=== PATIENT | male | born 1960 | race African-American/Black ===

== ENCOUNTER 2018-10-14 12:11 | Inpatient (IN) | payer OTHER ==
[2018-10-14] MEDS ORDERED: ASPIRIN 81 MG PO STA (12:28)
[2018-10-14] MEDS ORDERED: SODIUM CHLORIDE 0.9% 1,000 ML IV STA ×2 (12:28)
--- NOTE | 2018-10-14 12:35 | ED ---
Chest Pain HPI - General Chief Complaint: Chest Pain Stated Complaint: Chest pain Time Seen by Provider: 10/14/18 12:14 Source: patient, RN notes reviewed, old records reviewed Mode of arrival: EMS Limitations: no limitations - History of Present Illness Initial Comments: Patient is a 57-year-old male who presents emergency department today for evaluation for chest pain and dizziness. Patient reports that he was at work, and was breathing somewhat up. He started having episodes of dizziness and complained of a 3 out of 10 chest pain. Patient reports he's had history two- vessel coronary artery bypass over 10 years ago. 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 Patient states that he felt as if he was about to pass out when he had the episode of chest pain. EMS was called. He was given 2 nitro and reports that that assisted with his chest pain. Patient states that he has no nausea or vomiting or shortness of shortness of breath. He does report he has been having some intermittent coughing. - Related Data Home Medications Medication Instructions Recorded Confirmed Aspirin 81 mg PO DAILY 12/07/15 10/14/18 Clopidogrel [Plavix] 75 mg PO DAILY 12/07/15 10/14/18 Metoprolol Tartrate [Lopressor] 25 mg PO BID 12/07/15 10/14/18 Lisinopril [Zestril] 10 mg PO DAILY 10/14/18 10/14/18 Sertraline HCl [Zoloft] 25 mg PO DAILY 10/14/18 10/14/18 Simvastatin [Zocor] 40 mg PO HS 10/14/18 10/14/18 Allergies Allergy/AdvReac Type Severity Reaction Status Date / Time No Known Allergies Allergy Verified 10/14/18 12:33 Review of Systems ROS Statement: Those systems with pertinent positive or pertinent negative responses have been documented in the HPI. ROS Other: All systems not noted in ROS Statement are negative. EKG Findings - EKG Comments: EKG Findings:: EKG shows sinus bradycardia, inferior infarct age indeterminate possible anterior infarct age undetermined. Ventricular rate at 57 beats were minute period. Intervals 184 ms. QS ration 94 ms. QT QTc is 448/436 most seconds. No notes of ST elevation. Past Medical History Past Medical History: Chest Pain / Angina, Myocardial Infarction ([place]) History of Any Multi-Drug Resistant Organisms: None Reported Past Surgical History: Heart Catheterization With Stent Additional Past Surgical History / Comment(s): open heart Past Psychological History: Anxiety, Depression Smoking Status: Former smoker General Exam - General Exam Comments Initial Comments: 57-year-old -Citizen Of [place] male. Alert and oriented 3. Limitations: no limitations General appearance: alert, in no apparent distress Head exam: Present: atraumatic, normocephalic, normal inspection Eye exam: Present: normal appearance, PERRL, EOMI. Absent: scleral icterus, conjunctival injection, periorbital swelling ENT exam: Present: normal exam, mucous membranes moist Neck exam: Present: normal inspection. Absent: tenderness, meningismus, lymphadenopathy Respiratory exam: Present: normal lung sounds bilaterally. Absent: respiratory distress, wheezes, rales, rhonchi, stridor Cardiovascular Exam: Present: regular rate, normal rhythm, normal heart sounds. Absent: systolic murmur, diastolic murmur, rubs, gallop, clicks GI/Abdominal exam: Present: soft, normal bowel sounds. Absent: distended, tenderness, guarding, rebound, rigid Extremities exam: Present: normal inspection, full ROM, normal capillary refill. Absent: tenderness, pedal edema, joint swelling, calf tenderness Back exam: Present: normal inspection Neurological exam: Present: alert Psychiatric exam: Present: normal affect, normal mood Skin exam: Present: warm, dry, intact, normal color. Absent: rash Course Vital Signs 10/14/18 10/14/18 12:25 12:30 Temperature 98.4 F Pulse Rate 49 L 52 L Respiratory 16 18 Rate Blood Pressure 143/88 143/88 O2 Sat by Pulse 99 99 Oximetry Chest Pain [facility] 57-year-old male presents emergency department today with complaints of chest pain, and dizziness. Patient reports symptoms started while he was standing at work. Patient has history of coronary artery bypass. Patient has EKG with no significant change. Initial troponin is negative. He arrived via EMS and did feel improvement of his chest pain after 2 nitro and aspirin. 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 Dizziness, no associated chest pain with history of coronary artery disease. The Patient with consult to cardiology. Chest x-ray shows evidence of cardiomegaly. Increased from c omparison. Disposition Clinical Impression: Unstable angina, Light-headed feeling Disposition: ADMITTED IP TO THIS HOSP Condition: Stable Is patient prescribed a controlled substance at d/c from ED?: No Referrals: Sunilkumar,Mini, MD [Primary Care Provider] - 1-2 days Time of Disposition: 13:52
[2018-10-14 12:57] LABS: Basophils # (A) 0.1 k/uL (0-0.2); Basophils % (A) 1 %; Eosinophils # (A) 0.2 k/uL (0-0.7); Eosinophils % (A) 2 %; HCT 44.8 % (39.0-53.0); HGB 13.8 gm/dL (13.0-17.5); Lymphocytes # (A) 1.6 k/uL (1.0-4.8); Lymphocytes % (A) 21 %; MCH 25.3 pg (25.0-35.0); MCHC 30.7 g/dL (31.0-37.0); MCV 82.3 fL (80.0-100.0); Monocytes # (A) 0.5 k/uL (0-1.0); Monocytes % (A) 7 %; Neutrophils # (A) 5.1 k/uL (1.3-7.7); Neutrophils % (A) 67 %; Platelet Count 184 k/uL (150-450); RBC 5.44 m/uL (4.30-5.90); RDW 14.7 % (11.5-15.5); WBC 7.6 k/uL (3.8-10.6)
[2018-10-14 13:11] LABS: ALT 31 U/L (21-72); AST 44 U/L (17-59); Albumin 4.3 g/dL (3.5-5.0); Alkaline Phosphatase 58 U/L (38-126); Anion Gap 7 mmol/L; Blood Urea Nitrogen 11 mg/dL (9-20); Calcium 9.8 mg/dL (8.4-10.2); Carbon Dioxide 25 mmol/L (22-30); Chloride 105 mmol/L (98-107); Glucose 82 mg/dL (74-99); Magnesium 1.8 mg/dL (1.6-2.3); Potassium 5.4 mmol/L (3.5-5.1); Sodium 137 mmol/L (137-145); Total Bilirubin 1.5 mg/dL (0.2-1.3); Total Protein 7.7 g/dL (6.3-8.2)
--- NOTE | 2018-10-14 13:16 | XR ---
EXAMINATION TYPE: XR chest 2V DATE OF EXAM: 10/14/2018 COMPARISON: 12/08/2015 INDICATION: Chest pain TECHNIQUE: Frontal and lateral views of the chest are obtained. FINDINGS: The heart size is prominent, increased from comparison. The pulmonary vasculature is normal. The lungs are clear. IMPRESSION: 1. Cardiomegaly
[2018-10-14 13:18] LABS: Partial Thromboplastin Time 26.5 sec (22.0-30.0); Prothrombin Time 10.6 sec (9.0-12.0)
[2018-10-14] MEDS ORDERED: NITROGLYCERIN SL TABS 0.4 MG TAB SUBLINGUAL PRN (13:53)
--- NOTE | 2018-10-14 14:44 | P.HPIM ---
History of Present Illness This is a pleasant 57 years old male with past medical history of coronary artery disease status post cardiac cath and stent placement, ex-smoker, anxiety and depression. Presents this time because of chest/discomfort. Patient says that he has TIA last June when he had dizziness and weakness on the right side of the body missile generalized weakness which is resolved. Last night and this morning he felt some dizziness and generalized weakness without right-sided weakness, similar to the time when he had TIA. However this morning also he starts having indigestion in his stomach area associated with some discomfort in his left chest area, nonradiating with no overt chest pain. He felt also a little bit of dyspnea, little cuff with little clear phlegm Vitas looks stable, CBC, BMP and liver enzymes are within normal limits except for mildly elevated potassium at 5.4. Bilirubin 1.5. Troponin less than 0.012. EKG showing normal sinus rhythm with no significant ST-T changes, he has to with inversion in aVL. QTC 436. Chest x-ray: No acute cardiopulmonary process. Neurologist. Cardiomegaly. In the emergency room patient received aspirin, IV fluids Review of Systems CONSTITUTIONAL: No fever, no malaise, no fatigue. HEENT: No recent visual problems or hearing problems. Denied any sore throat. CARDIOVASCULAR: No orthopnea, PND, no palpitations, no syncope. PULMONARY: No shortness of breath, no cough, no hemoptysis. GASTROINTESTINAL: No diarrhea, no nausea, no vomiting, no abdominal pain. Normoactive bowel sounds. NEUROLOGICAL: No headaches, no weakness, no numbness. HEMATOLOGICAL: Denies any bleeding or petechiae. GENITOURINARY: Denies any burning micturition, frequency, or urgency. MUSCULOSKELETAL/RHEUMATOLOGICAL: Denies any joint pain, swelling, or any muscle pain. ENDOCRINE: Denies any polyuria or polydipsia. Past Medical History Past Medical History: Chest Pain / Angina, Myocardial Infarction ([place]) History of Any Multi-Drug Resistant Organisms: None Reported Past Surgical History: Heart Catheterization With Stent Additional Past Surgical History / Comment(s): open heart Past Psychological History: Anxiety, Depression Smoking Status: Former smoker Medications and Allergies Home Medications Medication Instructions Recorded Confirmed Type Aspirin 81 mg PO DAILY 12/07/15 10/14/18 History Clopidogrel [Plavix] 75 mg PO DAILY 12/07/15 10/14/18 History Metoprolol Tartrate [Lopressor] 25 mg PO BID 12/07/15 10/14/18 History Lisinopril [Zestril] 10 mg PO DAILY 10/14/18 10/14/18 History Sertraline HCl [Zoloft] 25 mg PO DAILY 10/14/18 10/14/18 History Simvastatin [Zocor] 40 mg PO HS 10/14/18 10/14/18 History Allergies Allergy/AdvReac Type Severity Reaction Status Date / Time No Known Allergies Allergy Verified 10/14/18 12:33 Physical Exam Vitals: Vital Signs Temp Pulse Resp BP Pulse Ox 10/14/18 14:05 68 16 156/93 100 10/14/18 12:30 52 L 18 143/88 99 10/14/18 12:25 98.4 F 49 L 16 143/88 99 Intake and Output 10/13/18 10/14/18 10/14/18 22:59 06:59 14:59 Other: Weight 113.398 kg GENERAL: The patient is alert and oriented x3, not in any acute distress. Well developed, well nourished. HEENT: Pupils are round and equally reacting to light. EOMI. No scleral icterus. No conjunctival pallor. Normocephalic, atraumatic. No pharyngeal erythema. No thyromegaly. CARDIOVASCULAR: S1 and S2 present. No murmurs, rubs, or gallops. PULMONARY: Chest is clear to auscultation, no wheezing or crackles. ABDOMEN: Soft, nontender, nondistended, normoactive bowel sounds. No palpable organomegaly. MUSCULOSKELETAL: No joint swelling or deformity. EXTREMITIES: No cyanosis, clubbing, or pedal edema. NEUROLOGICAL: Gross neurological examination did not reveal any focal deficits. SKIN: No rashes. Results CBC & Chem 7: 10/14/18 12:26 10/14/18 12:26 Labs: Abnormal Lab Results - Last 24 Hours (Table) 10/14/18 10/14/18 Range/Units 12: 12: MCHC 30.7 L (31.0-37.0) g/dL Potassium 5.4 H (3.5-5.1) mmol/L Total Bilirubin 1.5 H (0.2-1.3) mg/dL Assessment and Plan Assessment: Chest pain, rule out acute coronary syndrome History of coronary artery disease status post a stent placement Ex-smoker History of anxiety and depression Plan: This is a pleasant 57 years old male who presents because of chest discomfort .Will call cardiology consult. We will troponins and EKG. Continue with aspirin, Plavix. The last 4 TSH evaluation. Also we'll do a CAT scan of the heads Labs and medication were reviewed.. Continue same treatment. Continue with symptomatic treatment. Resume home medication. Monitor lytes and vitals. DVT and GI prophylaxis. Further recommendations of the clinical course of the patient DVT prophylaxis: Subcutaneous heparin GI Prophylaxis: Pepcid Prognosis is guarded
[2018-10-14] MEDS: FAMOTIDINE 20 MG/2 ML VIAL IV SCH ×2 (15:43→21:21)
--- NOTE | 2018-10-14 16:19 | CT ---
EXAMINATION TYPE: CT brain wo con DATE OF EXAM: 10/14/2018 COMPARISON: Dizziness INDICATION: chest pain, dizziness DLP: 1117.4 mGycm, Automated exposure control for dose reduction was used. CONTRAST: None CT of the brain is performed utilizing 3 mm thick sections through the posterior fossa and 3 mm thick sections through the remaining calvarium. Study is performed within 24 hours of arrival to the hosp ital. No abnormal hyperdensity is present to suggest an acute intracranial hemorrhage. No mass lesion is evident. No acute infarcts are evident. Periventricular white matter hypodensity is present, likely on the bas is of mild chronic white matter ischemic type changes. Ventricles and sulci are appropriate for the patient age. Retention cysts within the right maxillary sinus. Remaining paranasal sinuses and mastoid air cells a re clear. IMPRESSIONS: 1. Mild chronic appearing white matter ischemic type changes.
[2018-10-14 17:15] VITALS: BMI 33.0
[2018-10-14] MEDS: HEPARIN SODIUM,PORCINE 5,000 UNIT/ML 1 ML VIAL SQ SCH (21:12)
[2018-10-14] MEDS: METOPROLOL TARTRATE 25 MG TAB PO SCH (21:13)
[2018-10-14] MEDS: ATORVASTATIN 20 MG TAB PO SCH (21:13)
[2018-10-15 07:02] LABS: Basophils % (A) 1 %; Eosinophils # (A) 0.3 k/uL (0-0.7); Eosinophils % (A) 4 %; HCT 42.6 % (39.0-53.0); HGB 13.4 gm/dL (13.0-17.5); Lymphocytes # (A) 1.3 k/uL (1.0-4.8); Lymphocytes % (A) 22 %; MCHC 31.4 g/dL (31.0-37.0); MCV 82.8 fL (80.0-100.0); Monocytes # (A) 0.4 k/uL (0-1.0); Monocytes % (A) 7 %; Neutrophils # (A) 3.8 k/uL (1.3-7.7); Neutrophils % (A) 63 %; Platelet Count 156 k/uL (150-450); RBC 5.15 m/uL (4.30-5.90); RDW 14.7 % (11.5-15.5); WBC 6.1 k/uL (3.8-10.6)
[2018-10-15 07:10] LABS: Anion Gap 7 mmol/L; Blood Urea Nitrogen 12 mg/dL (9-20); Calcium 9.5 mg/dL (8.4-10.2); Carbon Dioxide 24 mmol/L (22-30); Chloride 107 mmol/L (98-107); Cholesterol 201 mg/dL (<200); Glucose 80 mg/dL (74-99); HDL Cholesterol 35 mg/dL (40-60); LDL Cholesterol,Calculated 139 mg/dL (0-99); Potassium 4.5 mmol/L (3.5-5.1); Sodium 138 mmol/L (137-145); Triglycerides 137 mg/dL (<150)
[2018-10-15] MEDS: FAMOTIDINE 20 MG/2 ML VIAL IV SCH ×2 (08:29→20:11)
[2018-10-15] MEDS: LISINOPRIL 10 MG TAB PO SCH (08:29)
[2018-10-15] MEDS: CLOPIDOGREL 75 MG TAB PO SCH (08:29)
[2018-10-15] MEDS: HEPARIN SODIUM,PORCINE 5,000 UNIT/ML 1 ML VIAL SQ SCH ×2 (08:29→20:11)
[2018-10-15] MEDS: ASPIRIN 325 MG TAB PO SCH (08:29)
[2018-10-15] MEDS ORDERED: SERTRALINE 25 MG TAB PO SCH (09:00)
[2018-10-15] MEDS ORDERED: REGADENOSON 0.4 MG/5 ML SYRINGE IV ONE (09:59)
[2018-10-15] MEDS: METOPROLOL TARTRATE 25 MG TAB PO SCH (10:05)
--- NOTE | 2018-10-15 14:36 | P.CRDCN ---
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 Beside that he does have hypertension as well as dyslipidemia. He was in his usual state of health until yesterday when he was at work and started experiencing discomfort in the mid of the chest, as a pressure on the chest, without any radiation to the arm or neck or shoulders, and without any associated symptoms of shortness of breath, sweating, nausea, heart racing, or syncope. Because of that he decided to come to the emergency room. The EKG showed sinus rhythm without any ischemic ST or T-wave abnormalities. The cardiac enzymes were checked and came in to be unremarkable. The chest x-ray did not show any acute abnormalities. The patient felt dizzy before he started experiencing the chest discomfort and that dizziness and reminded him with what he had earlier this year when he was diagnosed was TIA. On physical examination, he is chest pain-free. He does have significant systolic murmur at the right and left upper sternal border. At this point I am going to obtain an echocardiogram was Doppler. Beside that I did recommend obtaining stress test to rule out severe coronary artery disease. Meanwhile will continue the current medical regimen. Past Medical History Past Medical History: Chest Pain / Angina, Myocardial Infarction ([place]) Last Myocardial Infarction Date:: 2001 History of Any Multi-Drug Resistant Organisms: None Reported Past Surgical History: Heart Catheterization With Stent Additional Past Surgical History / Comment(s): open heart, knee surgery Date of Last Stent Placement:: 2001 Past Psychological History: Anxiety, Depression Smoking Status: Never smoker Medications and Allergies Home Medications Medication Instructions Recorded Confirmed Type Aspirin 81 mg PO DAILY 12/07/15 10/14/18 History Clopidogrel [Plavix] 75 mg PO DAILY 12/07/15 10/14/18 History Metoprolol Tartrate [Lopressor] 25 mg PO BID 12/07/15 10/14/18 History Lisinopril [Zestril] 10 mg PO DAILY 10/14/18 10/14/18 History Sertraline HCl [Zoloft] 25 mg PO DAILY 10/14/18 10/14/18 History Simvastatin [Zocor] 40 mg PO HS 10/14/18 10/14/18 History Allergies Allergy/AdvReac Type Severity Reaction Status Date / Time No Known Allergies Allergy Verified 10/14/18 12:33 Physical Exam Vitals: Vital Signs Temp Pulse Pulse Resp BP BP Pulse Ox 10/15/18 08:00 98.0 F 57 L 18 148/82 96 10/15/18 04:00 98.1 F 78 16 139/72 98 10/15/18 00:00 97.9 F 60 16 116/68 98 10/14/18 20:00 98 F 70 16 127/70 96 10/14/18 16:35 64 18 154/82 100 10/14/18 15:45 59 L 16 142/86 100 10/14/18 14:05 68 16 156/93 100 10/14/18 12:30 52 L 18 143/88 99 10/14/18 12:25 98.4 F 49 L 16 143/88 99 Intake and Output 10/14/18 10/15/18 10/15/18 22:59 06:59 14:59 Intake Total 500 0 Balance 500 0 Intake: Intake, IV Titration 500 Amount Sodium Chloride 0.9% 1, 500 000 ml @ 100 mls/hr IV . Q10H STA Rx#:[id number] Oral 0 Other: # Voids 1 1 Weight 118.2 kg - Constitutional General appearance: no acute distress - Respiratory Respiratory: bilateral: CTA - Cardiovascular Rhythm: regular Heart sounds: normal: S1, S2 Abnormal Heart Sounds: systolic murmur Results 10/15/18 06:02 10/15/18 06:02 Cardiac Enzymes 10/14/18 10/14/18 10/14/18 Range/Units 12:26 12:26 18:00 AST 44 (17-59) U/L Troponin I <0.012 <0.012 (0.000-0.034) ng/mL 10/15/18 Range/Units 00:36 AST (17-59) U/L Troponin I <0.012 (0.000-0.034) ng/mL Coagulation 10/14/18 Range/Units 12:26 PT 10.6 (9.0-12.0) sec APTT 26.5 (22.0-30.0) sec Lipids 10/15/18 Range/Units 06:02 Triglycerides 137 (<150) mg/dL Cholesterol 201 H (<200) mg/dL HDL Cholesterol 35 L (40-60) mg/dL CBC 10/14/18 10/15/18 Range/Units 12: 06:02 WBC 7.6 6.1 (3.8-10.6) k/uL RBC 5.44 5.15 (4.30-5.90) m/uL Hgb 13.8 13.4 (13.0-17.5) gm/dL Hct 44.8 42.6 (39.0-53.0) % Plt Count 184 156 (150-450) k/uL Comprehensive Metabolic Panel 10/14/18 10/15/18 Range/Units 12: 06:02 Sodium 137 138 (137-145) mmol/L Potassium 5.4 H 4.5 (3.5-5.1) mmol/L Chloride 105 107 (98-107) mmol/L Carbon Dioxide 25 24 (22-30) mmol/L BUN 11 12 (9-20) mg/dL Creatinine 0.95 1.03 (0.66-1.25) mg/dL Glucose 82 80 (74-99) mg/dL Calcium 9.8 9.5 (8.4-10.2) mg/dL AST 44 (17-59) U/L ALT 31 (21-72) U/L Alkaline Phosphatase 58 (38-126) U/L Total Protein 7.7 (6.3-8.2) g/dL Albumin 4.3 (3.5-5.0) g/dL Current Medications Generic Name Dose Route Start Last Admin Trade Name Freq PRN Reason Stop Dose Admin Aspirin 325 mg 10/15/18 09:00 10/15/18 08:29 Aspirin PO 325 mg DAILY DARCI Administration Atorvastatin Calcium 20 mg 10/14/18 21:00 10/14/18 21:13 Lipitor PO 20 mg HS DARCI Administration Clopidogrel Bisulfate 75 mg 10/15/18 09:00 10/15/18 08:29 Plavix PO 75 mg DAILY DARCI Administration Famotidine 20 mg 10/14/18 14:45 10/15/18 08:29 Pepcid IV 20 mg Q12HR DARCI Administration Heparin Sodium (Porcine) 5,000 unit 10/14/18 21:00 10/15/18 08:29 Heparin SQ 5,000 unit Q12HR DARCI Administration Lisinopril 10 mg 10/15/18 09:00 10/15/18 08:29 Zestril PO 10 mg DAILY DARCI Administration Metoprolol Tartrate 25 mg 10/14/18 21:00 10/14/18 21:13 Lopressor PO 25 mg BID DARCI Administration Nitroglycerin 0.4 mg 10/14/18 13:53 Nitrostat SUBLINGUAL Q5M PRN Chest Pain Sertraline HCl 25 mg 10/15/18 09:00 10/15/18 08:29 Zoloft PO 25 mg DAILY DARCI Administration Intake and Output 10/14/18 10/15/18 10/15/18 22:59 06:59 14:59 Intake Total 500 0 Balance 500 0 Intake: Intake, IV Titration 500 Amount Sodium Chloride 0.9% 1, 500 000 ml @ 100 mls/hr IV . Q10H STA Rx#:[id number] Oral 0 Other: # Voids 1 1 Weight 118.2 kg 10/15/18 06:02 10/15/18 06:02 Assessment and Plan Assessment: Assessment #1 atypical chest discomfort #2 coronary artery disease #3 hypertension #4 dyslipidemia #5 history of TIA Plan #1 the patient was ruled out for acute coronary event #2 I recommended obtaining stress test to rule out severe CAD #3 I did recommend also getting an echocardiogram was Doppler #4 follow-up with the patient Thank you for allowing us participate in his care
--- NOTE | 2018-10-15 14:39 | P.PN ---
Subjective This is a pleasant 57 years old male with past medical history of coronary artery disease status post cardiac cath and stent placement, ex-smoker, anxiety and depression. Presents this time because of chest/discomfort. Patient says that he has TIA last June when he had dizziness and weakness on the right side of the body missile generalized weakness which is resolved. Last night and this morning he felt some dizziness and generalized weakness without right-sided weakness, similar to the time when he had TIA. However this morning also he starts having indigestion in his stomach area associated with some discomfort in his left chest area, nonradiating with no overt chest pain. He felt also a little bit of dyspnea, little cuff with little clear phlegm Vitas looks stable, CBC, BMP and liver enzymes are within normal limits except for mildly elevated potassium at 5.4. Bilirubin 1.5. Troponin less than 0.012. EKG showing normal sinus rhythm with no significant ST-T changes, he has to with inversion in aVL. QTC 436. Chest x-ray: No acute cardiopulmonary process. Neurologist. Cardiomegaly. In the emergency room patient received aspirin, IV fluids 10/15/2018 Patient feels better regarding his chest pain and dizziness. His chest pain is improved but still have some discomfort. He still have, dry. However he still feels generally weak. Hemodynamically stable. Labs were unremarkable. Cholesterol is mildly elevated. He has negative CAT scan of the brain for acute process. And TSH is within normal limits at 1.6. Patient has been evaluated by cardiology team. Patient is going for stress test tomorrow. 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 HEENT: No recent visual problems or hearing problems. Denied any sore throat. CARDIOVASCULAR: No orthopnea, PND, no palpitations, no syncope. PULMONARY: , no hemoptysis. GASTROINTESTINAL: No diarrhea, no nausea, no vomiting, no abdominal pain. Normoactive bowel sounds. NEUROLOGICAL: No headaches, no weakness, no numbness. HEMATOLOGICAL: Denies any bleeding or petechiae. GENITOURINARY: Denies any burning micturition, frequency, or urgency. MUSCULOSKELETAL/RHEUMATOLOGICAL: Denies any joint pain, swelling, or any muscle pain. ENDOCRINE: Denies any polyuria or polydipsia. Medications: A minor filling 100 mg, aspirin 325 mg, Lipitor 20 mg, Plavix 75 mg, dipyridamole 49.98 mm, Pepcid 20 mg, heparin 5000 units, lisinopril 10 mg, metoprolol 25 mg, nitroglycerin 0.4 mg, Zoloft 25 mg Objective - Vital Signs Vital signs: Vital Signs Temp 97.8 F 10/15/18 11:19 Pulse 62 10/15/18 11:19 Resp 18 10/15/18 11:19 BP 152/77 10/15/18 11:19 Pulse Ox 97 10/15/18 11:19 Intake & Output 10/14/18 10/15/18 10/15/18 18:59 06:59 18:59 Intake Total 500 0 Balance 500 0 Weight 113.398 kg 118.2 kg Intake: Intake, IV Titration 500 Amount Sodium Chloride 0.9% 1, 500 000 ml @ 100 mls/hr IV . Q10H STA Rx#:[id number] Oral 0 Other: # Voids 1 - Exam GENERAL: The patient is alert and oriented x3, not in any acute distress. Well developed, well nourished. HEENT: Pupils are round and equally reacting to light. EOMI. No scleral icterus. No conjunctival pallor. Normocephalic, atraumatic. No pharyngeal erythema. No thyromegaly. CARDIOVASCULAR: S1 and S2 present. No murmurs, rubs, or gallops. PULMONARY: Chest is clear to auscultation, no wheezing or crackles. ABDOMEN: Soft, nontender, nondistended, normoactive bowel sounds. No palpable organomegaly. MUSCULOSKELETAL: No joint swelling or deformity. EXTREMITIES: No cyanosis, clubbing, or pedal edema. NEUROLOGICAL: Gross neurological examination did not reveal any focal deficits. SKIN: No rashes. - Labs CBC & Chem 7: 10/15/18 06:02 10/15/18 06:02 Labs: Abnormal Lab Results - Last 24 Hours (Table) 10/15/18 Range/Units 06:02 Cholesterol 201 H (<200) mg/dL LDL Cholesterol, Calc 139 H (0-99) mg/dL HDL Cholesterol 35 L (40-60) mg/dL Assessment and Plan Assessment: Chest pain, rule out acute coronary syndrome History of coronary artery disease status post a stent placement Ex-smoker History of anxiety and depression Plan: This is a pleasant 57 years old male who presents because of chest discomfort .Will call cardiology consult. We will troponins and EKG. Continue with aspirin, Plavix. The last 4 TSH evaluation. Also we'll do a CAT scan of the heads Labs and medication were reviewed.. Continue same treatment. Continue with symptomatic treatment. Resume home medication. Monitor lytes and vitals. DVT and GI prophylaxis. Further recommendations of the clinical course of the patient DVT prophylaxis: Subcutaneous heparin GI Prophylaxis: Pepcid Prognosis is guarded
--- NOTE | 2018-10-15 14:45 | ECHOF ---
Referral Reason: MEASUREMENTS -------- HEIGHT: 185.4 cm WEIGHT: 117.9 kg BP: 152/77 RVIDd: 3.4 cm (< 3.3) IVSd: 1.5 cm (0.6 - 1.1) LVIDd: 5.1 cm (3.9 - 5.3) LVPWd: 1.5 cm (0.6 - 1.1) IVSs: 1.9 cm LVIDs: 4.1 cm LVPWs: 2.1 cm LA Diam: 3.8 cm (2.7 - 3.8) LAESV Index (A-L): 37.52 ml/m Ao Diam: 3.2 cm (2.0 - 3.7) AV Cusp: 2.5 cm (1.5 - 2.6) MV EXCURSION: 24.295 mm (> 18.000) MV EF SLOPE: 115 mm/s (70 - 150) EPSS: 0.9 cm MV E Ankit: 0.79 m/s MV DecT: 285 ms MV A Ankit: 0.97 m/s MV E/A Ratio: 0.81 RAP: 5.00 mmHg RVSP: 27.81 mmHg FINDINGS -------- Sinus rhythm. This was a technically difficult study with suboptimal apical views. History of heart surgery The left ventricular size is normal. There is moderate concentric left ventricular hypertrophy. O verall left ventricular systolic function is low-normal with, an EF between 50 - 55 %. The right ventricle is mildly enlarged. LA is moderately dilated 34-39 ml/m2 The right atrium is normal in size. 5 ml of Lumason was utilized for enhancement of images. Interatrial and interventricular septum intact. The aortic valve is trileaflet and appears structurally normal. The mitral valve is normal. Mild tricuspid regurgitation present. Right ventricular systolic pressure is normal at < 35 mmHg. Trace/mild (physiologic) pulmonic regurgitation. The aortic root size is normal. IVC Not well visulized. There is no pericardial effusion. CONCLUSIONS -------- 1. Sinus rhythm. 2. This was a technically difficult study with suboptimal apical views. 3. History of heart surgery 4. The left ventricular size is normal. 5. There is moderate concentric left ventricular hypertrophy. 6. Overall left ventricular systolic function is low-normal with, an EF between 50 - 55 %. 7. The right ventricle is mildly enlarged. 8. LA is moderately dilated 34-39 ml/m2 9. The right atrium is normal in size. 10. 5 ml of Lumason was utilized for enhancement of images. 11. Interatrial and interventricular septum intact. 12. The aortic valve is trileaflet and appears structurally normal. 13. The mitral valve is normal. 14. Mild tricuspid regurgitation present. 15. Right ventricular systolic pressure is normal at < 35 mmHg. 16. Trace/mild (physiologic) pulmonic regurgitation. 17. The aortic root size is normal. 18. IVC Not well visulized. 19. There is no pericardial effusion. [facility]: Anna Davis RDCS
[2018-10-15 19:16] VITALS: RESP 18
[2018-10-15] MEDS: ATORVASTATIN 20 MG TAB PO SCH (20:11)
[2018-10-16] MEDS: METOPROLOL TARTRATE 25 MG TAB PO SCH (01:03)
[2018-10-16] MEDS: traZODone HCL 100 MG TAB PO SCH ×2 (02:09→02:13)
[2018-10-16] MEDS ORDERED: AMINOPHYLLINE 500 MG/20 ML VIAL IV PRN (07:00)
[2018-10-16] MEDS ORDERED: CAFFEINE CITRATE 60 MG/3 ML VIAL IV PRN (07:00)
[2018-10-16 07:23] VITALS: BP 163/78; TEMP 97.4
--- NOTE | 2018-10-16 08:24 | P.PN ---
Subjective Progress Note Date: 10/16/18 Principal diagnosis: Chest pain This is a pleasant 57-year-old gentleman with history of coronary artery disease and prior coronary artery vascularization as well as multiple comorbid conditions was admitted to the hospital with a chest discomfort and ruled out for acute coronary event. On follow-up with him today, 10/16/2018, he did have some chest discomfort last night. He is in process of having a Lexiscan Cardiolite stress test on today. We'll follow-up on the echocardiogram. Objective - Vital Signs Vital signs: Vital Signs Temp 97.4 F L 10/16/18 07:00 Pulse 60 10/16/18 07:00 Resp 18 10/16/18 07:00 BP 163/78 10/16/18 07:00 Pulse Ox 98 10/16/18 07:00 Intake & Output 10/15/18 10/16/18 10/16/18 18:59 06:59 18:59 Intake Total 0 Balance 0 Intake: Oral 0 Other: # Voids 1 - Constitutional General appearance: Present: no acute distress - Respiratory Respiratory: bilateral: CTA - Cardiovascular Rhythm: regular Heart sounds: normal: S1, S2 Abnormal Heart Sounds: Present: systolic murmur - Labs CBC & Chem 7: 10/15/18 06:02 10/15/18 06:02 Assessment and Plan Assessment: Assessment #1 atypical chest discomfort #2 coronary artery disease #3 hypertension #4 dyslipidemia #5 history of TIA Plan #1 the patient was ruled out for acute coronary event #2 I recommended obtaining stress test to rule out severe CAD #3 follow-up with the patient Thank you for allowing us participate in his care
[2018-10-16] MEDS: CLOPIDOGREL 75 MG TAB PO SCH (08:52)
[2018-10-16] MEDS: HEPARIN SODIUM,PORCINE 5,000 UNIT/ML 1 ML VIAL SQ SCH (08:52)
[2018-10-16] MEDS: FAMOTIDINE 20 MG/2 ML VIAL IV SCH (08:53)
[2018-10-16] MEDS: ASPIRIN 325 MG TAB PO SCH (08:53)
[2018-10-16] MEDS: LISINOPRIL 10 MG TAB PO SCH (08:53)
--- NOTE | 2018-10-16 11:21 | NM ---
EXAMINATION TYPE: NM myocardial SPECT single DATE OF EXAM: 10/16/2018 COMPARISON: Chest x-ray 10/14/2018 HISTORY: Chest pain Following administration of 10.3 mCi Tc 99m Sestamibi. Images obtained 45 minutes post injection. FINDINGS: Calculated ejection fraction is 47% Decreased uptake is noted along the inferior wall left ventricle extending into the inferoapical loca tion. IMPRESSION: Findings could represent inferior wall left ventricle infarct.
[2018-10-16] MEDS ORDERED: SODIUM CHLORIDE 0.9% IV ONE (12:00)
[2018-10-16] MEDS ORDERED: DIPYRIDAMOLE IV ONE (12:00)
[2018-10-16 12:37] VITALS: PULSE 59
== END 2018-10-16 13:37 | disposition home or self-care (01) | DRG 313 ==
LOC: EC 12:11 → 3SCARD 14:01 → 1SOBS 10-15 15:20 → OBSVTOIN 10-16 13:14
PROVIDERS: ADMIT Hospitalist; ATTEND Hospitalist
DX: R07.89 Other chest pain (principal); I25.10 Atherosclerotic heart disease of native coronary artery without angina pectoris; I11.9 Hypertensive heart disease without heart failure; E78.5 Hyperlipidemia, unspecified; F32.9 Major depressive disorder, single episode, unspecified; F41.9 Anxiety disorder, unspecified; I25.2 Old myocardial infarction; R01.1 Cardiac murmur, unspecified; R42 Dizziness and giddiness; R53.1 Weakness; Z79.02 Long term (current) use of antithrombotics/antiplatelets; Z79.82 Long term (current) use of aspirin; Z79.899 Other long term (current) drug therapy; Z87.891 Personal history of nicotine dependence
CPT/HCPCS: 36415; 70450; 71046; 78451; 80048; 80053; 80061; 83735; 83880; 84443; 84484; 85025; 85610; 85730; 87502; 93005; 93306; 96361; 96374; 99285

== ENCOUNTER 2018-10-28 01:17 | Emergency (ER) | payer OTHER ==
[2018-10-28 01:57] LABS: Basophils # (A) 0.1 k/uL (0-0.2); Basophils % (A) 1 %; Eosinophils # (A) 0.2 k/uL (0-0.7); Eosinophils % (A) 2 %; HGB 13.3 gm/dL (13.0-17.5); Lymphocytes # (A) 2.1 k/uL (1.0-4.8); Lymphocytes % (A) 28 %; MCH 25.7 pg (25.0-35.0); MCHC 31.7 g/dL (31.0-37.0); Mean Platelet Volume 9.6; Monocytes # (A) 0.5 k/uL (0-1.0); Monocytes % (A) 7 %; Neutrophils # (A) 4.3 k/uL (1.3-7.7); Neutrophils % (A) 59 %; Platelet Count 175 k/uL (150-450); RBC 5.19 m/uL (4.30-5.90); RDW 14.6 % (11.5-15.5); WBC 7.2 k/uL (3.8-10.6)
[2018-10-28 02:07] LABS: Prothrombin Time 10.3 sec (9.0-12.0)
[2018-10-28 02:11] LABS: Albumin 4.2 g/dL (3.5-5.0); Calcium 9.6 mg/dL (8.4-10.2); Potassium 4.4 mmol/L (3.5-5.1); Total Bilirubin 0.7 mg/dL (0.2-1.3); Total Protein 7.4 g/dL (6.3-8.2)
--- NOTE | 2018-10-28 02:56 | ED ---
General Adult HPI - General Chief complaint: Chest Pain Stated complaint: Chest Pressure Time Seen by Provider: 10/28/18 01:47 Source: patient, EMS Mode of arrival: EMS - History of Present Illness Initial comments: He'll is a pleasant 58-year-old -Cong[place] gentleman with extensive medical history who presents to the emergency department today for evaluation of chest pain. Patient reports that on Monday he was moving furniture into his new apartment. Patient reports that he had a lot of heavy lifting and by Monday afternoon began experiencing some pain bilaterally in his shoulders and chest. Patient reports that throughout the day on Monday he experience this pain seemed to be worse with any movement. Pain is not exertional is not relieved with rest not associated with dyspnea or palpitations. Patient reports this pain is not similar to previous cardiac events. Patient reports that he home this evening and his and him got into a verbal disagreement, he reports that his is being very rude to him and spitting at him telling him to get out of the house. Patient reports that he was so fatigued and sore from doing manual labor of moving the just couldn't deal with this I decided to come to the ER for evaluation of his discomfort and to get out of the house. - Related Data Previous Rx's Medication Instructions Recorded Aspirin 81 mg PO DAILY #30 chew 10/16/18 Clopidogrel [Plavix] 75 mg PO DAILY #30 tab 10/16/18 Lisinopril [Zestril] 10 mg PO DAILY #30 tab 10/16/18 Metoprolol Tartrate [Lopressor] 25 mg PO BID #60 tab 10/16/18 Nitroglycerin Sl Tabs [Nitrostat] 0.4 mg SUBLINGUAL Q5M PRN #20 tab 10/16/18 Sertraline HCl [Zoloft] 25 mg PO DAILY #15 tablet 10/16/18 Simvastatin [Zocor] 40 mg PO HS #30 tab 10/16/18 Allergies Allergy/AdvReac Type Severity Reaction Status Date / Time No Known Allergies Allergy Verified 10/28/18 01:29 Review of Systems ROS Statement: Those systems with pertinent positive or pertinent negative responses have been documented in the HPI. ROS Other: All systems not noted in ROS Statement are negative. Past Medical History Past Medical History: Chest Pain / Angina, Myocardial Infarction ([place]) Last Myocardial Infarction Date:: 2001 History of Any Multi-Drug Resistant Organisms: None Reported Past Surgical History: Heart Catheterization With Stent Additional Past Surgical History / Comment(s): open heart, knee surgery Date of Last Stent Placement:: 2001 Past Psychological History: Anxiety, Depression Smoking Status: Never smoker General Exam - General Exam Comments Initial Comments: Physical Exam GENERAL: Patient is well-developed and well-nourished. Patient is nontoxic and well- hydrated and is in no distress. HENT: Normocephalic, Atraumatic. EYES: PERRL, EOMI PULMONARY: Unlabored respirations. No audible rales rhonchi or wheezing was noted. CARDIOVASCULAR: There is a regular rate and rhythm without any murmurs gallops or rubs. Well-healed sternotomy scar ABDOMEN: Soft and nontender with normal bowel sounds. SKIN: Skin is clear with no lesions or rashes and otherwise unremarkable. : Deferred NEUROLOGIC: Patient is alert and oriented x3. Moving all extremities spontaneously MUSCULOSKELETAL: Normal extremities with adequate strength and full range of motion. No lower extremity swelling or edema. No calf tenderness. PSYCHIATRIC: Normal psychiatric evaluation. Limitations: no limitations Course Vital Signs 10/28/18 10/28/18 10/28/18 01:26 01:48 02:28 Temperature 98.7 F Pulse Rate 76 75 80 Respiratory 18 16 18 Rate Blood Pressure 111/80 111/80 120/86 O2 Sat by Pulse 97 94 L 96 Oximetry 10/28/18 10/28/18 04:28 05:03 Temperature 98.6 F Pulse Rate 60 Respiratory 18 Rate Blood Pressure 152/91 O2 Sat by Pulse 100 Oximetry Medical Decision Making - Medical Decision Making The patient was seen and evaluated history was obtained from patient Patient been performing some heavy lifting and has subsequently developed some musculoskeletal discomfort in the bilateral upper chest and shoulders. Patient does have cardiac history but pain today is not sudden onset not exertional not relieved with rest has been persistent for over 24 hours. Labs and imaging ordered Labs, chest x-ray and EKG were all unremarkable, patient was sleeping comfortably. Patient was allowed to sleep in the emergency department until 5 AM at which time he was discharged home with no complaints. - Lab Data Result diagrams: 10/28/18 01:45 10/28/18 01:45 Lab Results 10/28/18 10/28/18 10/28/18 Range/Units 01:45 01:45 01:45 WBC 7.2 (3.8-10.6) k/uL RBC 5.19 (4.30-5.90) m/uL Hgb 13.3 (13.0-17.5) gm/dL Hct 42.0 (39.0-53.0) % MCV 81.0 (80.0-100.0) fL MCH 25.7 (25.0-35.0) pg MCHC 31.7 (31.0-37.0) g/dL RDW 14.6 (11.5-15.5) % Plt Count 175 (150-450) k/uL Neutrophils % 59 % Lymphocytes % 28 % Monocytes % 7 % Eosinophils % 2 % Basophils % 1 % Neutrophils # 4.3 (1.3-7.7) k/uL Lymphocytes # 2.1 (1.0-4.8) k/uL Monocytes # 0.5 (0-1.0) k/uL Eosinophils # 0.2 (0-0.7) k/uL Basophils # 0.1 (0-0.2) k/uL PT (9.0-12.0) sec INR (<1.2) APTT (22.0-30.0) sec Sodium 138 (137-145) mmol/L Potassium 4.4 (3.5-5.1) mmol/L Chloride 103 (98-107) mmol/L Carbon Dioxide 27 (22-30) mmol/L Anion Gap 8 mmol/L BUN 13 (9-20) mg/dL Creatinine 1.17 (0.66-1.25) mg/dL Est GFR (CKD-EPI)AfAm 78 (>60 ml/min/1.73 sqM) Est GFR (CKD-EPI)NonAf 67 (>60 ml/min/1.73 sqM) Glucose 93 (74-99) mg/dL Calcium 9.6 (8.4-10.2) mg/dL Magnesium 2.0 (1.6-2.3) mg/dL Total Bilirubin 0.7 (0.2-1.3) mg/dL AST 30 (17-59) U/L ALT 29 (21-72) U/L Alkaline Phosphatase 59 (38-126) U/L Troponin I (0.000-0.034) ng/mL NT-Pro-B Natriuret Pep 292 pg/mL Total Protein 7.4 (6.3-8.2) g/dL Albumin 4.2 (3.5-5.0) g/dL Lipase 106 (23-300) U/L 10/28/18 10/28/18 Range/Units 01:45 01:45 WBC (3.8-10.6) k/uL RBC (4.30-5.90) m/uL Hgb (13.0-17.5) gm/dL Hct (39.0-53.0) % MCV (80.0-100.0) fL MCH (25.0-35.0) pg MCHC (31.0-37.0) g/dL RDW (11.5-15.5) % Plt Count (150-450) k/uL Neutrophils % % Lymphocytes % % Monocytes % % Eosinophils % % Basophils % % Neutrophils # (1.3-7.7) k/uL Lymphocytes # (1.0-4.8) k/uL Monocytes # (0-1.0) k/uL Eosinophils # (0-0.7) k/uL Basophils # (0-0.2) k/uL PT 10.3 (9.0-12.0) sec INR 1.0 (<1.2) APTT 27.0 (22.0-30.0) sec Sodium (137-145) mmol/L Potassium (3.5-5.1) mmol/L Chloride (98-107) mmol/L Carbon Dioxide (22-30) mmol/L Anion Gap mmol/L BUN (9-20) mg/dL Creatinine (0.66-1.25) mg/dL Est GFR (CKD-EPI)AfAm (>60 ml/min/1.73 sqM) Est GFR (CKD-EPI)NonAf (>60 ml/min/1.73 sqM) Glucose (74-99) mg/dL Calcium (8.4-10.2) mg/dL Magnesium (1.6-2.3) mg/dL Total Bilirubin (0.2-1.3) mg/dL AST (17-59) U/L ALT (21-72) U/L Alkaline Phosphatase (38-126) U/L Troponin I <0.012 (0.000-0.034) ng/mL NT-Pro-B Natriuret Pep pg/mL Total Protein (6.3-8.2) g/dL Albumin (3.5-5.0) g/dL Lipase (23-300) U/L Disposition Clinical Impression: Musculoskeletal chest pain Disposition: HOME SELF-CARE Condition: Stable Instructions (If sedation given, give patient instructions): Chest Pain (ED) Is patient prescribed a controlled substance at d/c from ED?: No Referrals: Chantell Hurt MD [Primary Care Provider] - 1-2 days
--- NOTE | 2018-10-28 03:16 | XR ---
EXAM: XR Chest, 2 Views CLINICAL HISTORY: Chest pain. TECHNIQUE: Frontal and lateral views of the chest. COMPARISON: CXR dated 10/14/2018. FINDINGS: Lungs: Unremarkable. No focal consolidation. No evidence of pulmonary edema. Pleural space: Unremarkable. No pneumothorax. Heart: Stable mild enlargement of cardiac silhouette. Mediastinum: No mediastinal widening. Stable postsurgical changes of the chest with sternotomy wires. Bones/joints: Unremarkable. IMPRESSION: Stable CXR without evidence of acute chest abnormality. Stable mild enlargement of cardiac silhouette.
[2018-10-28 04:58] VITALS: RESP 18
[2018-10-28 04:59] VITALS: BP 152/91; PULSE 60
[2018-10-28 05:06] VITALS: TEMP 98.6
== END 2018-10-28 05:02 | disposition home or self-care (01) ==
LOC: EC 01:17
DX: R07.89 Other chest pain (principal); I25.2 Old myocardial infarction; Z95.5 Presence of coronary angioplasty implant and graft
CPT/HCPCS: 36415; 71046; 80053; 83690; 83735; 83880; 84484; 85025; 85610; 85730; 93005; 99285

== ENCOUNTER 2018-12-16 16:29 | Observation (INO) | payer OTHER ==
[2018-12-16] MEDS ORDERED: ASPIRIN 81 MG PO STA (16:59)
[2018-12-16] MEDS ORDERED: NITROGLYCERIN OINT 1 INCH/GM PACKET TOPICAL STA (16:59)
--- NOTE | 2018-12-16 17:04 | ED ---
General Adult HPI - General Chief complaint: Chest Pain Stated complaint: CHEST DISCOMFORT Time Seen by Provider: 12/16/18 16:37 Source: patient, police, EMS, RN notes reviewed Mode of arrival: EMS Limitations: no limitations - History of Present Illness Initial comments: Patient is a pleasant 58-year-old male presenting to the emergency Department with complaints of chest discomfort. Patient was having argument with his and was brought in by police. Patient did develop chest discomfort. Discomfort is described as tightness in the left chest without radiation. Symptoms have now resolved. Patient did have associated dyspnea and nausea and sweating. Symptoms are similar to previous cardiac problems, patient did have myocardial infarction a couple of months ago. Patient also has history of previous CABG. Patient also feels depressed and has suicidal thoughts with plan. No hallucinations. - Related Data Previous Rx's Medication Instructions Recorded Aspirin 81 mg PO DAILY #30 chew 10/16/18 Clopidogrel [Plavix] 75 mg PO DAILY #30 tab 10/16/18 Lisinopril [Zestril] 10 mg PO DAILY #30 tab 10/16/18 Metoprolol Tartrate [Lopressor] 25 mg PO BID #60 tab 10/16/18 Nitroglycerin Sl Tabs [Nitrostat] 0.4 mg SUBLINGUAL Q5M PRN #20 tab 10/16/18 Sertraline HCl [Zoloft] 25 mg PO DAILY #15 tablet 10/16/18 Simvastatin [Zocor] 40 mg PO HS #30 tab 10/16/18 Allergies Allergy/AdvReac Type Severity Reaction Status Date / Time No Known Allergies Allergy Verified 10/28/18 01:29 Review of Systems ROS Statement: Those systems with pertinent positive or pertinent negative responses have been documented in the HPI. ROS Other: All systems not noted in ROS Statement are negative. Constitutional: Denies: fever Eyes: Denies: eye pain ENT: Denies: ear pain Respiratory: Denies: cough Cardiovascular: Reports: as per HPI Endocrine: Denies: fatigue Gastrointestinal: Denies: abdominal pain Genitourinary: Denies: urgency Musculoskeletal: Denies: back pain Skin: Denies: rash Neurological: Denies: weakness Psychiatric: Reports: depression, suicidal thoughts. Denies: auditory hallucina tions, visual hallucinations Past Medical History Past Medical History: Chest Pain / Angina, Myocardial Infarction ([place]) Last Myocardial Infarction Date:: 2001 History of Any Multi-Drug Resistant Organisms: None Reported Past Surgical History: Heart Catheterization With Stent Additional Past Surgical History / Comment(s): open heart, knee surgery Date of Last Stent Placement:: 2001 Past Psychological History: Anxiety, Depression Smoking Status: Never smoker General Exam Limitations: no limitations General appearance: alert, in no apparent distress Head exam: Present: atraumatic Eye exam: Present: normal appearance, PERRL ENT exam: Present: normal oropharynx Neck exam: Present: normal inspection Respiratory exam: Present: normal lung sounds bilaterally. Absent: chest wall tenderness Cardiovascular Exam: Present: regular rate, normal rhythm Expanded Peripheral pulses: 2+: Radial (R), Radial (L), Posterior Tibialis (R), Posterior Tibialis (L) GI/Abdominal exam: Present: soft. Absent: tenderness Extremities exam: Present: normal inspection. Absent: pedal edema, calf tenderness Neurological exam: Present: alert Psychiatric exam: Present: normal affect, normal mood Skin exam: Present: normal color Course Vital Signs 12/16/18 12/16/18 16:54 16:57 Temperature 97.6 F Pulse Rate 88 Pulse Rate [ 80 Dimensional Inspector ] Respiratory 18 Rate Blood Pressure 163/94 O2 Sat by Pulse 97 Oximetry EKG Findings - EKG Comments: EKG Findings:: EKG shows sinus rhythm at 80. Premature complexes are present. AL 192. QRS 106. QT 392. QTC 452. Normal axis. Inferior Q waves. No acute ST change. Medical Decision Making - Medical Decision Making Patient reevaluated and resting comfortably in bed. Patient was updated on results and plan. Case was discussed in detail with Dr. Decker, covering for Dr. Destinee Decker, who will admit. Cardiology and psychiatry will be placed on consult. - Lab Data Result diagrams: 12/16/18 16:45 12/16/18 16:45 Lab Results 12/16/18 12/16/18 12/16/18 Range/Units 16:45 16:45 16:45 WBC 8.5 (3.8-10.6) k/uL RBC 5.25 (4.30-5.90) m/uL Hgb 14.0 (13.0-17.5) gm/dL Hct 43.6 (39.0-53.0) % MCV 83.0 (80.0-100.0) fL MCH 26.6 (25.0-35.0) pg MCHC 32.0 (31.0-37.0) g/dL RDW 15.0 (11.5-15.5) % Plt Count 187 (150-450) k/uL Neutrophils % 70 % Lymphocytes % 20 % Monocytes % 6 % Eosinophils % 1 % Basophils % 1 % Neutrophils # 6.0 (1.3-7.7) k/uL Lymphocytes # 1.7 (1.0-4.8) k/uL Monocytes # 0.5 (0-1.0) k/uL Eosinophils # 0.1 (0-0.7) k/uL Basophils # 0.0 (0-0.2) k/uL PT 10.4 (9.0-12.0) sec INR 1.0 (<1.2) APTT 26.0 (22.0-30.0) sec Sodium 140 (137-145) mmol/L Potassium 4.0 (3.5-5.1) mmol/L Chloride 104 (98-107) mmol/L Carbon Dioxide 25 (22-30) mmol/L Anion Gap 11 mmol/L BUN 14 (9-20) mg/dL Creatinine 1.34 H (0.66-1.25) mg/dL Est GFR (CKD-EPI)AfAm 67 (>60 ml/min/1.73 sqM) Est GFR (CKD-EPI)NonAf 58 (>60 ml/min/1.73 sqM) Glucose 164 H (74-99) mg/dL Calcium 10.0 (8.4-10.2) mg/dL Magnesium 1.9 (1.6-2.3) mg/dL Total Bilirubin 0.7 (0.2-1.3) mg/dL AST 32 (17-59) U/L ALT 33 (21-72) U/L Alkaline Phosphatase 61 (38-126) U/L Troponin I (0.000-0.034) ng/mL Total Protein 7.8 (6.3-8.2) g/dL Albumin 4.5 (3.5-5.0) g/dL Serum Alcohol <10 mg/dL 12/16/18 Range/Units 16:45 WBC (3.8-10.6) k/uL RBC (4.30-5.90) m/uL Hgb (13.0-17.5) gm/dL Hct (39.0-53.0) % MCV (80.0-100.0) fL MCH (25.0-35.0) pg MCHC (31.0-37.0) g/dL RDW (11.5-15.5) % Plt Count (150-450) k/uL Neutrophils % % Lymphocytes % % Monocytes % % Eosinophils % % Basophils % % Neutrophils # (1.3-7.7) k/uL Lymphocytes # (1.0-4.8) k/uL Monocytes # (0-1.0) k/uL Eosinophils # (0-0.7) k/uL Basophils # (0-0.2) k/uL PT (9.0-12.0) sec INR (<1.2) APTT (22.0-30.0) sec Sodium (137-145) mmol/L Potassium (3.5-5.1) mmol/L Chloride (98-107) mmol/L Carbon Dioxide (22-30) mmol/L Anion Gap mmol/L BUN (9-20) mg/dL Creatinine (0.66-1.25) mg/dL Est GFR (CKD-EPI)AfAm (>60 ml/min/1.73 sqM) Est GFR (CKD-EPI)NonAf (>60 ml/min/1.73 sqM) Glucose (74-99) mg/dL Calcium (8.4-10.2) mg/dL Magnesium (1.6-2.3) mg/dL Total Bilirubin (0.2-1.3) mg/dL AST (17-59) U/L ALT (21-72) U/L Alkaline Phosphatase (38-126) U/L Troponin I <0.012 (0.000-0.034) ng/mL Total Protein (6.3-8.2) g/dL Albumin (3.5-5.0) g/dL Serum Alcohol mg/dL - Radiology Data Radiology results: image reviewed (Chest x-ray shows no acute process) Disposition Clinical Impression: Chest pain, Depression Disposition: ADMITTED IP TO THIS [facility] Is patient prescribed a controlled substance at d/c from ED?: No Referrals: Chantell Hurt MD [Primary Care Provider] - 1-2 days Decision Time: 18:16
[2018-12-16 17:22] LABS: Basophils % (A) 1 %; Eosinophils # (A) 0.1 k/uL (0-0.7); Eosinophils % (A) 1 %; HCT 43.6 % (39.0-53.0); Lymphocytes # (A) 1.7 k/uL (1.0-4.8); Lymphocytes % (A) 20 %; MCH 26.6 pg (25.0-35.0); Mean Platelet Volume 9.5; Monocytes # (A) 0.5 k/uL (0-1.0); Monocytes % (A) 6 %; Neutrophils % (A) 70 %; Platelet Count 187 k/uL (150-450); RBC 5.25 m/uL (4.30-5.90); WBC 8.5 k/uL (3.8-10.6)
[2018-12-16 17:24] LABS: ALT 33 U/L (21-72); AST 32 U/L (17-59); African American GFR (CKD) 67 (>60 ml/min/1.73 sqM); Albumin 4.5 g/dL (3.5-5.0); Alcohol <10 mg/dL; Alkaline Phosphatase 61 U/L (38-126); Anion Gap 11 mmol/L; Blood Urea Nitrogen 14 mg/dL (9-20); Carbon Dioxide 25 mmol/L (22-30); Chloride 104 mmol/L (98-107); Glucose 164 mg/dL (74-99); Magnesium 1.9 mg/dL (1.6-2.3); Non-African American GFR(CKD) 58 (>60 ml/min/1.73 sqM); Sodium 140 mmol/L (137-145); Total Bilirubin 0.7 mg/dL (0.2-1.3); Total Protein 7.8 g/dL (6.3-8.2)
[2018-12-16 17:27] LABS: Prothrombin Time 10.4 sec (9.0-12.0)
--- NOTE | 2018-12-16 17:59 | XR ---
EXAMINATION TYPE: XR chest 2V DATE OF EXAM: 12/16/2018 COMPARISON: Prior chest x-ray 10/28/2018 HISTORY: Chest pain TECHNIQUE: Frontal and lateral views of the chest are obtained. FINDINGS: The patient is post median sternotomy and there are overlying cardiac leads. There is no f ocal air space opacity, pleural effusion, or pneumothorax seen. The cardiac silhouette size is stabl e. The osseous structures are intact. IMPRESSION: No acute cardiopulmonary process.
[2018-12-16] MEDS ORDERED: ALPRAZolam 0.25 MG TAB PO PRN (18:18)
[2018-12-16] MEDS ORDERED: TEMAZEPAM 15 MG CAP PO PRN (18:18)
[2018-12-16] MEDS ORDERED: ACETAMINOPHEN TAB 500 MG TAB PO PRN (18:18)
[2018-12-16] MEDS ORDERED: NITROGLYCERIN SL TABS 0.4 MG TAB SUBLINGUAL PRN (18:28)
[2018-12-16 18:48] LABS: Amphetamine Screen,Urine Not Detected (NotDetected); Barbiturate Screen,Urine Not Detected (NotDetected); Benzodiazepines Screen,Urine Not Detected (NotDetected); Cocaine Screen,Urine Not Detected (NotDetected); Methadone Screen, Urine Not Detected (NotDetected); Opiate Screen,Urine Not Detected (NotDetected); Oxycodone Screen, Urine Not Detected (NotDetected); Phencyclidine Screen,Urine Not Detected (NotDetected); Tricyclic Antidepressant,Urine Not Detected (NotDetected); Urn Cannabinoid Scrn Not Detected (NotDetected)
[2018-12-16] MEDS: traZODone HCL 50 MG TAB PO PRN (21:48)
[2018-12-16] MEDS: METOPROLOL TARTRATE 25 MG TAB PO SCH (21:48)
[2018-12-16] MEDS: ATORVASTATIN 10 MG TAB PO SCH (21:48)
[2018-12-16] MEDS: HYDROcodone/APAP 5-325MG 1 EACH TAB PO PRN (21:54)
--- NOTE | 2018-12-16 22:10 | HP ---
HISTORY AND PHYSICAL DATE OF SERVICE: 12/16/2018 CHIEF COMPLAINT: Chest pain and as well as argument. HISTORY OF PRESENT ILLNESS: This 58-year-old gentleman with a past medical history of multiple medical problems including history of chest pain, history of myocardial infarction, history of CAD stent being followed by Dr. Jasmine Lawler and Dr. Chantell Hurt in the outpatient setting was apparently having some argument with his and the patient said the patient is having chest pain felt in the anterior part of chest which was almost like a tightness without radiation. The patient also reports that when the patient is arguing with his , the blood pressure goes up and apparently the police was involved and the police brought the patient to [facility] and admitted to the hospital for further evaluation and treatment. The patient also had some suicidal ideations previously and there is no history of fever, rigors or chills. No history of headache, loss of consciousness or seizures. PAST MEDICAL HISTORY: History of myocardial infarction, CAD, stent, history of CABG. MEDICATIONS: Prior to admission: Home medications are: 1. Zocor 40 mg q.h.s. 2. Zoloft 25 mg b.i.d. 3. Nitrostat 0.4 sublingual p.r.n. 4. Lopressor 25 mg b.i.d. 5. Zestril 10 mg b.i.d. 6. Plavix 75 mg daily. 7. Aspirin 81 mg daily. ALLERGIES: None. FAMILY HISTORY: No history of heart disease or strokes in the family. SOCIAL HISTORY: No history of smoking. No history of alcohol. REVIEW OF SYSTEMS: ENT: No diminished hearing. No diminished vision. CARDIOVASCULAR: As mentioned earlier. RESPIRATION as mentioned earlier. GI no nausea or vomiting. no dysuria. NERVOUS SYSTEM: No numbness or weakness. ALLERGY/IMMUNOLOGY: No asthma or hayfever. MUSCULOSKELETAL: As mentioned earlier. HEMATOLOGY/ONCOLOGY: No history of anemia. ENDOCRINE: No history of diabetes or hypothyroidism. CONSTITUTIONAL: As mentioned earlier. DERMATOLOGY: Negative. RHEUMATOLOGY negative. PSYCHIATRY as mentioned earlier. PHYSICAL EXAMINATION: Alert and oriented x3. Pulse is 88. Blood pressure 160/94, respiration 18, temperature 97.6, pulse ox 97% on room air. HEENT: Conjunctivae normal. NECK: No jugular venous distention. CARDIOVASCULAR: S1, S2 muffled. RESPIRATIONS: Breath sounds diminished in the bases. A few scattered rhonchi. No crackles. ABDOMEN: Soft, nontender. No mass palpable. LEGS: No edema. No swelling. NERVOUS SYSTEM: Higher functions as mentioned earlier. Moves all four limbs. No focal motor or sensory deficits. LYMPHATICS: No lymph nodes palpable in the neck, axilla or groin. JOINTS: No active deforming arthropathy. LABS: CBC within normal limits and creatinine is 1.34. Troponins negative. ASSESSMENT: 1. Chest pain, possible unstable angina. 2. Social stressors and suicidal ideations. 3. Increased creatinine with mild acute renal failure secondary from prerenal renal failure and dehydration. 4. History of myocardial infarction. 5. History of coronary artery disease, history of coronary artery bypass grafting, stent. 6. History of degenerative joint disease. RECOMMENDATIONS AND DISCUSSION: In this 58-year-old gentleman who presented with multiple complex medical issues, we will monitor the patient closely, continue the current medications, management and symptomatic treatment. Rule out myocardial infarction. Cardiology consultation. Psychiatric consultation. Otherwise, we will monitor the patient closely. Resume the home medications. Guarded prognosis because of multiple complex medical. Further recommendations to follow. A copy of dictation forwarded to Dr. Jasmine Lawler. We will also get a psych consultation for psych evaluation and possible inpatient psych admission also. MMODL / IJN: [id number] /
[2018-12-17] MEDS: NITROGLYCERIN OINT 1 INCH/GM PACKET TOPICAL SCH ×4 (00:01→17:55)
[2018-12-17 05:55] LABS: Basophils % (A) 0 %; Eosinophils # (A) 0.2 k/uL (0-0.7); Eosinophils % (A) 2 %; HCT 42.4 % (39.0-53.0); HGB 13.2 gm/dL (13.0-17.5); Lymphocytes % (A) 24 %; MCHC 31.2 g/dL (31.0-37.0); MCV 83.5 fL (80.0-100.0); Mean Platelet Volume 9.1; Monocytes # (A) 0.5 k/uL (0-1.0); Monocytes % (A) 6 %; Neutrophils # (A) 5.6 k/uL (1.3-7.7); Neutrophils % (A) 66 %; Platelet Count 158 k/uL (150-450); RBC 5.08 m/uL (4.30-5.90); WBC 8.5 k/uL (3.8-10.6)
[2018-12-17 06:24] LABS: Calcium 9.4 mg/dL (8.4-10.2); Potassium 4.4 mmol/L (3.5-5.1)
[2018-12-17] MEDS: CLOPIDOGREL 75 MG TAB PO SCH (08:51)
[2018-12-17] MEDS: SERTRALINE 100 MG TAB PO SCH (08:52)
[2018-12-17] MEDS: HYDROcodone/APAP 5-325MG 1 EACH TAB PO PRN (08:52)
[2018-12-17] MEDS: ASPIRIN 325 MG TAB PO SCH (08:52)
[2018-12-17] MEDS: METOPROLOL TARTRATE 25 MG TAB PO SCH ×2 (08:52→21:23)
[2018-12-17] MEDS: PANTOPRAZOLE 40 MG TABLET PO SCH (08:52)
[2018-12-17] MEDS ORDERED: DOBUTamine DRIP for NUC MED 500 MG in DEXTROSE/WATER 1 250ML.BAG IV ONE (09:03)
--- NOTE | 2018-12-17 09:30 | CONS ---
CONSULTATION Mr. Peter is a 58-year-old gentleman with history of coronary artery disease, status post prior angioplasty, and dyslipidemia who presented to hospital with chest pain. He was involved in an argument with his , during which he had chest discomfort, describes it as a chest tightness. It is not associated with shortness of breath, diaphoresis. There was no definite radiation to neck, arm or back. Came to the ER and gradually became chest pain free. There is no clear response to sublingual nitroglycerin. The patient was in the hospital with an episode of chest pain back in September, was supposed to have an outpatient stress test which he never did. At the time of my evaluation this morning, he appears comfortable at rest and is free of significant symptoms. EKG on him shows evidence of prior inferior wall myocardial infarction, anteroseptal SC. His EKG is very similar to the EKG he had in the past. Since admission, he had 3 sets of cardiac enzymes that have all been negative. Hemoglobin is normal at 13.2, platelet count is 158. PAST MEDICAL HISTORY: Significant for CAD, status post angioplasty. MEDICATIONS: Include Zoloft, trazodone, Lopressor 25 b.i.d., Plavix Lipitor, and aspirin. ALLERGIES: There are no known drug allergies. FAMILY HISTORY: Negative for premature coronary artery disease. SOCIAL HISTORY: Negative for smoking, EtOH abuse, or drug abuse. REVIEW OF SYSTEMS: HEENT: Unremarkable. CARDIAC: As described above. RESPIRATORY: Negative. GI: Negative. GENITOURINARY: Negative. ALLERGY/IMMUNOLOGY: Negative. SKIN: Negative. ENDOCRINE: Significant for arthritis. PSYCHOSOCIAL: Negative. DERM: Negative CONSTITUTIONAL: Negative ONCOLOGICAL: Negative. The rest of the system review is not relevant. PHYSICAL EXAM: Patient is afebrile. Heart rate is 56 beats per minute, blood pressure is 118/61, respiratory rate is 18. There is no jugular venous distention. Carotid upstroke is normal. There is no bruit. Chest exam reveals good air entry bilaterally. Heart exam reveals first and second heart sounds. No gallop. No murmur. Abdomen is soft, nontender. Exam of extremities did not reveal any edema. Peripheral pulses are felt. 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 ASSESSMENT: 1. Precordial chest pain. 2. Coronary artery disease, status post angioplasty. PLAN: Patient's chest discomfort is sharp, atypical, precipitated following an emotional argument with his . EKG does not reveal any new changes. Cardiac enzymes are negative. I am going to obtain a dobutamine echo on him. If this is negative, he does not require any further workup at this time. Thank you for allowing us to participate in the care of this pleasant gentleman. ANGEL / EMMY: [id number] /
[2018-12-17] MEDS: NITROGLYCERIN SL TABS 0.4 MG TAB SUBLINGUAL PRN ×2 (09:39→09:55)
--- NOTE | 2018-12-17 11:34 | P.DS ---
Providers Date of admission: 12/16/18 18:18 Attending physician: Peg Decker Consults: 12/16/18 18:16 Consult Physician Urgent Consulting Provider: Thelma Will Consult Reason/Comments: depression Do you want consulting provider notified?: Already Contacted 12/16/18 18:18 Consult Physician Urgent Consulting Provider: Mckay Jacobo Consult Reason/Comments: cp Do you want consulting provider notified?: Yes Primary care physician: [facility] Course: patient with a history of coronary artery disease and prior anoplasty came in with compensative chest pain which appears to be noncardiac. Patient apparently had an episode of chest pain which was relieved by nitroglycerin patient will undergo stress test if that's negative patient will be discharged if cleared by psychiatry patient was complaining of suicidal ideations. Patient will be discharged back to the correctional facility if cleared by both cardiology and psychiatry. PHYSICAL EXAMINATION: GENERAL: The patient is alert and oriented x3, not in any acute distress. Well developed, well nourished. HEENT: Pupils are round and equally reacting to light. EOMI. No scleral icterus. No conjunctival pallor. Normocephalic, atraumatic. No pharyngeal erythema. No thyromegaly. CARDIOVASCULAR: S1 and S2 present. No murmurs, rubs, or gallops. PULMONARY: Chest is clear to auscultation, no wheezing or crackles. ABDOMEN: Soft, nontender, nondistended, normoactive bowel sounds. No palpable organomegaly. MUSCULOSKELETAL: No joint swelling or deformity. EXTREMITIES: No cyanosis, clubbing, or pedal edema. NEUROLOGICAL: Gross neurological examination did not reveal any focal deficits. SKIN: No rashes. for rest of the problems hospitalization course please refer to dictation from Dr. Decker from yesterday Plan - Discharge Summary Discharge Rx Participant: No New Discharge Prescriptions: No Action Nitroglycerin Sl Tabs [Nitrostat] 0.4 mg SUBLINGUAL Q5M PRN #20 tab PRN Reason: Chest Pain Aspirin 81 mg PO DAILY #30 chew Metoprolol Tartrate [Lopressor] 25 mg PO BID #60 tab Clopidogrel [Plavix] 75 mg PO DAILY #30 tab traZODone HCL 50 mg PO HS PRN PRN Reason: Insomnia Sertraline [Zoloft] 100 mg PO DAILY Atorvastatin Calcium [Lipitor] 10 mg PO HS Discharge Medication List Aspirin 81 mg PO DAILY #30 chew 10/16/18 [Rx] Clopidogrel [Plavix] 75 mg PO DAILY #30 tab 10/16/18 [Rx] Metoprolol Tartrate [Lopressor] 25 mg PO BID #60 tab 10/16/18 [Rx] Nitroglycerin Sl Tabs [Nitrostat] 0.4 mg SUBLINGUAL Q5M PRN #20 tab 10/16/18 [Rx] Atorvastatin Calcium [Lipitor] 10 mg PO HS 12/16/18 [History] Sertraline [Zoloft] 100 mg PO DAILY 12/16/18 [History] traZODone HCL 50 mg PO HS PRN 12/16/18 [History] Follow up Appointment(s)/Referral(s): Chantell Hurt MD [Primary Care Provider] - 3 Days Discharge Disposition: OTHER INSTITUTION NOT DEFINED
--- NOTE | 2018-12-17 12:13 | ECHOF ---
Referral Reason:pcp MEASUREMENTS -------- HEIGHT: 185.4 cm WEIGHT: 112.5 kg BP: 118/61 RVIDd: 3.0 cm (< 3.3) IVSd: 1.2 cm (0.6 - 1.1) LVIDd: 5.1 cm (3.9 - 5.3) LVPWd: 1.5 cm (0.6 - 1.1) IVSs: 1.3 cm LVIDs: 4.3 cm LVPWs: 1.5 cm LAESV Index (A-L): 18.73 ml/m Ao Diam: 3.0 cm (2.0 - 3.7) AV Cusp: 2.2 cm (1.5 - 2.6) LA Diam: 4.3 cm (2.7 - 3.8) EPSS: 1.0 cm MV E Ankit: 0.99 m/s MV DecT: 212 ms MV A Ankit: 0.93 m/s MV E/A Ratio: 1.06 RAP: 5.00 mmHg RVSP: 15.09 mmHg %FS: 22.82 % EDV(Teich): 177.25 ml EF(Teich): 45.09 % ESV(Teich): 97.33 ml IVSd: 1.10 cm (0.6 - 1.1) IVSs: 1.82 cm LVIDd: 5.96 cm (3.9 - 5.3) LVIDs: 4.60 cm LVPWd: 1.19 cm (0.6 - 1.1) LVPWs: 1.56 cm MV EF SLOPE: 105.21 mm/s (70 - 150) MV EXCURSION: 2.57 cm (> 18.000) SV(Teich): 79.91 ml FINDINGS -------- Sinus rhythm with extra systolic beats. This was a technically adequate study. The left ventricle is mildly dilated. There is mild concentric left ventricular hypertrophy. Over all left ventricular systolic function is mild-moderately impaired with, an EF between 40 - 45 %. T here is paradoxical/dysynergic septal motion consistent with post-operative status. The diastolic f illing pattern indicates impaired relaxation. Anterseptal Hypokinesis The right ventricle is normal in size. Left atrium is normal size by volume. The right atrial size is normal. Interatrial and interventricular septum intact. The aortic valve is trileaflet and appears structurally normal. There is no evidence of aortic regu rgitation. There is no evidence of aortic stenosis. The mitral valve leaflets are mildly thickened. Mild mitral annular calcification present. There is trace mitral regurgitation. Mild tricuspid regurgitation present. There is no evidence of pulmonary hypertension. The right v entricular systolic pressure, as measured by Doppler, is 15.09mmHg. There is no pulmonic regurgitation present. The aortic root size is normal. IVC not well visualized There is no pericardial effusion. CONCLUSIONS -------- 1. Sinus rhythm with extra systolic beats. 2. This was a technically adequate study. 3. The left ventricle is mildly dilated. 4. There is mild concentric left ventricular hypertrophy. 5. Overall left ventricular systolic function is mild-moderately impaired with, an EF between 40 - 45 %. 6. There is paradoxical/dysynergic septal motion consistent with post-operative status. 7. The diastolic filling pattern indicates impaired relaxation. 8. Anterseptal Hypokinesis 9. The right ventricle is normal in size. 10. Left atrium is normal size by volume. 11. The right atrial size is normal. 12. Interatrial and interventricular septum intact. 13. The aortic valve is trileaflet and appears structurally normal. 14. There is no evidence of aortic regurgitation. 15. There is no evidence of aortic stenosis. 16. The mitral valve leaflets are mildly thickened. 17. Mild mitral annular calcification present. 18. There is trace mitral regurgitation. 19. Mild tricuspid regurgitation present. 20. There is no evidence of pulmonary hypertension. 21. The right ventricular systolic pressure, as measured by Doppler, is 15.09mmHg. 22. There is no pulmonic regurgitation present. 23. The aortic root size is normal. 24. IVC not well visualized 25. There is no pericardial effusion. AUDITING CLERK: Fatoumata Gomez RDCS
--- NOTE | 2018-12-17 12:30 | ECHOS ---
STRESS ECHOCARDIOGRAM INDICATIONS: Chest pain. BASELINE HEART RATE: 56 BASELINE BLOOD PRESSURE: 135/80 MAXIMUM HEART RATE: 137 MAXIMUM BLOOD PRESSURE: 213/61 85% MPHR: 136 100% MPHR: 160 MAXIMUM STAGE REACHED: 4 TOTAL EXERCISE TIME: 11:15 CLINICAL INFORMATION: Baseline EKG revealed normal sinus rhythm with evidence of inferior Q-waves and poor R- wave progression with septal Q-waves also suggestive of prior anteroseptal NM. Cannot exclude old inferior NM. With dobutamine administration as per protocol, the EKG demonstrated no new changes. Patient's heart rate went up to 137 beats per minute which is 85% of predicted maximal. There was no evidence of any significant arrhythmia. EKG did not reveal ST-segment changes to indicate ischemia. By EKG criteria this is a negative dobutamine stress test with some resting EKG changes. Baseline echo images revealed evidence of anteroseptal hypokinesia and also mild inferoseptal hypokinesia. With dobutamine administration as per protocol, there was progressive increase in contractility in all segments except the anteroseptal and inferior septal portion of the left ventricle. These areas remained hypokinetic, suggesting that there is an old anteroseptal and probably an inferoseptal myocardial infarction. The rest of the myocardium demonstrated improved contractility suggesting that there are no areas of ischemia. The patient had hypertensive response to dobutamine administration. IMPRESSION: 1. By EKG criteria, this is unremarkable dobutamine stress test with minor resting EKG changes. 2. Abnormal dobutamine stress echocardiogram with evidence of old anteroseptal and inferoseptal hypokinetic area that remained hypokinetic, but the rest of the myocardium seemed to contract well. There was hypertensive response to exercise. Clinical correlation is suggested. 3. There are no areas of any significant ischemia. Clinical correlation is suggested. MMODL / IJN: [id number] /
[2018-12-17] MEDS: ATORVASTATIN 10 MG TAB PO SCH (21:23)
[2018-12-17] MEDS: traZODone HCL 50 MG TAB PO PRN (21:23)
[2018-12-18] MEDS: NITROGLYCERIN OINT 1 INCH/GM PACKET TOPICAL SCH ×2 (00:43→08:33)
[2018-12-18] MEDS: HYDROcodone/APAP 5-325MG 1 EACH TAB PO PRN (02:16)
[2018-12-18] MEDS: METOPROLOL TARTRATE 25 MG TAB PO SCH (08:36)
[2018-12-18] MEDS: SERTRALINE 100 MG TAB PO SCH (08:36)
[2018-12-18] MEDS: ASPIRIN 325 MG TAB PO SCH (08:36)
[2018-12-18] MEDS: CLOPIDOGREL 75 MG TAB PO SCH (08:36)
[2018-12-18] MEDS: PANTOPRAZOLE 40 MG TABLET PO SCH (08:36)
[2018-12-18 09:19] VITALS: BP 151/91; PULSE 61; RESP 18; TEMP 97.6
--- NOTE | 2018-12-18 10:15 | P.DS ---
Providers Date of admission: 12/16/18 18:18 Attending physician: Peg Decker Consults: 12/16/18 18:16 Consult Physician Urgent Consulting Provider: Thelma Will Consult Reason/Comments: depression Do you want consulting provider notified?: Already Contacted 12/16/18 18:18 Consult Physician Urgent Consulting Provider: Mckay Jacobo Consult Reason/Comments: cp Do you want consulting provider notified?: Yes Primary care physician: [facility] Course: Patient and her fasting the hospital yesterday as the hear some issues with insurance approval to go to mental health unit. Patient will be discharged to mental health unit please refer to my dictation of discharge summary from yesterday for further details his stress test is negative for any inducible ischemia. PHYSICAL EXAMINATION: GENERAL: The patient is alert and oriented x3, not in any acute distress. Well developed, well nourished. HEENT: Pupils are round and equally reacting to light. EOMI. No scleral icterus. No conjunctival pallor. Normocephalic, atraumatic. No pharyngeal erythema. No thyromegaly. CARDIOVASCULAR: S1 and S2 present. No murmurs, rubs, or gallops. PULMONARY: Chest is clear to auscultation, no wheezing or crackles. ABDOMEN: Soft, nontender, nondistended, normoactive bowel sounds. No palpable organomegaly. MUSCULOSKELETAL: No joint swelling or deformity. EXTREMITIES: No cyanosis, clubbing, or pedal edema. NEUROLOGICAL: Gross neurological examination did not reveal any focal deficits. SKIN: No rashes. Plan - Discharge Summary Discharge Rx Participant: No New Discharge Prescriptions: No Action Nitroglycerin Sl Tabs [Nitrostat] 0.4 mg SUBLINGUAL Q5M PRN #20 tab PRN Reason: Chest Pain Aspirin 81 mg PO DAILY #30 chew Metoprolol Tartrate [Lopressor] 25 mg PO BID #60 tab Clopidogrel [Plavix] 75 mg PO DAILY #30 tab traZODone HCL 50 mg PO HS PRN PRN Reason: Insomnia Sertraline [Zoloft] 100 mg PO DAILY Atorvastatin Calcium [Lipitor] 10 mg PO HS Discharge Medication List Aspirin 81 mg PO DAILY #30 chew 10/16/18 [Rx] Clopidogrel [Plavix] 75 mg PO DAILY #30 tab 10/16/18 [Rx] Metoprolol Tartrate [Lopressor] 25 mg PO BID #60 tab 10/16/18 [Rx] Nitroglycerin Sl Tabs [Nitrostat] 0.4 mg SUBLINGUAL Q5M PRN #20 tab 10/16/18 [Rx] Atorvastatin Calcium [Lipitor] 10 mg PO HS 12/16/18 [History] Sertraline [Zoloft] 100 mg PO DAILY 12/16/18 [History] traZODone HCL 50 mg PO HS PRN 12/16/18 [History] Follow up Appointment(s)/Referral(s): Chantell Hurt MD [Primary Care Provider] - 3 Days
== END 2018-12-18 10:34 | disposition psychiatric hospital, planned readmission (93) ==
LOC: EC 16:29 → 3SCARD 18:18 → UNDODISOB 12-17 16:01
PROVIDERS: ADMIT Hospitalist; ATTEND Hospitalist
DX: R07.89 Other chest pain (principal); R45.851 Suicidal ideations; F32.9 Major depressive disorder, single episode, unspecified; N17.9 Acute kidney failure, unspecified; E86.0 Dehydration; I25.10 Atherosclerotic heart disease of native coronary artery without angina pectoris; R11.0 Nausea; R06.00 Dyspnea, unspecified; R61 Generalized hyperhidrosis; F41.9 Anxiety disorder, unspecified; E78.5 Hyperlipidemia, unspecified; M19.90 Unspecified osteoarthritis, unspecified site; G47.00 Insomnia, unspecified; Z79.02 Long term (current) use of antithrombotics/antiplatelets; Z79.82 Long term (current) use of aspirin; Z79.899 Other long term (current) drug therapy; Z95.5 Presence of coronary angioplasty implant and graft; Z98.61 Coronary angioplasty status; I25.2 Old myocardial infarction; Z95.1 Presence of aortocoronary bypass graft; Z63.0 Problems in relationship with spouse or partner
CPT/HCPCS: 82075; 99285; 36415; 93005; 93306; 93351; 80061; 80053; 80048; 83735; 84484 ×2; 85025 ×2; 85610; 85730; 80306; 80320; 71046; G0378 ×3; J1250

== ENCOUNTER 2018-12-18 10:26 | Inpatient (IN) | payer OTHER ==
[2018-12-18] MEDS ORDERED: MAGNESIUM HYDROXIDE 2,400 MG/10 ML CUP PO PRN (12:11)
[2018-12-18] MEDS ORDERED: MAG HYDROX/AL HYDROX/SIMETH 30 ML CUP PO PRN (12:11)
[2018-12-18] MEDS ORDERED: LORazepam 1 MG TAB PO PRN (12:11)
[2018-12-18] MEDS ORDERED: NITROGLYCERIN SL TABS 0.4 MG TAB SUBLINGUAL PRN (12:18)
[2018-12-18 12:58] VITALS: BMI 33.3
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
--- NOTE | 2018-12-18 15:43 | P.MDCNMH ---
History of Present Illness H&P Date: 12/18/18 Chief Complaint: Medical management of hypertension, coronary artery disease and other medic Patient is a 58-year-old male with a known history of coronary disease status post coronary artery status post stent placement at the age 40, multiple TIAs, anxiety/depression and hyperlipidemia was initially admitted to the hospital with complaints of chest tightness after he was having altered with his . Patient was seen by cardiology and patient underwent dobutamine stress echocardiogram showed negative test by EKG criteria and evidence of old anteroseptal and inferoseptal hypokinetic area that remained hypokinetic. No areas of any significant ischemia noted. Patient was having suicidal ideation and psychiatric months inpatient psychiatric admission. Patient was eventually transferred to inpatient psychiatric unit. Currently patient denied any complaints of chest pain or shortness of breath. No nausea vomiting or abdominal pain. Review of Systems Constitutional: Patient denies any fever or chills . No generalized weakness or weight loss. Abdomen: Patient denied nausea vomiting and diarrhea and abdominal pain. Cardiovascular: Patient denies any chest pain or short of breath no palpitations. Respiratory: patient denied any cough is from production. No shortness of breath Neurologic: Patient denied any numbness or tingling headache. Musculoskeletal: Patient denies any complaints of joint swelling or deformity. Skin: Negative Psychiatric: Negative Endocrine: No heat or cold intolerance. No recent weight gain. Genitourinary: No dysuria or hematuria. All other 14 point ROS negative except the above Past Medical History Past Medical History: Chest Pain / Angina, Myocardial Infarction ([place]) Last Myocardial Infarction Date:: 2001 History of Any Multi-Drug Resistant Organisms: None Reported Past Surgical History: Heart Catheterization With Stent Additional Past Surgical History / Comment(s): open heart, knee surgery Past Anesthesia/Blood Transfusion Reactions: No Reported Reaction Date of Last Stent Placement:: 2001 Past Psychological History: Anxiety, Depression Smoking Status: Never smoker Past Alcohol Use History: None Reported Past Drug Use History: None Reported Medications and Allergies Home Medications Medication Instructions Recorded Confirmed Type Aspirin 81 mg PO DAILY #30 chew 10/16/18 12/18/18 Rx Clopidogrel [Plavix] 75 mg PO DAILY #30 tab 10/16/18 12/18/18 Rx Metoprolol Tartrate [Lopressor] 25 mg PO BID #60 tab 10/16/18 12/18/18 Rx Nitroglycerin Sl Tabs [Nitrostat] 0.4 mg SUBLINGUAL Q5M PRN #20 tab 10/16/18 12/18/18 Rx Atorvastatin Calcium [Lipitor] 10 mg PO HS 12/16/18 12/18/18 History Sertraline [Zoloft] 100 mg PO DAILY 12/16/18 12/18/18 History traZODone HCL 50 mg PO HS PRN 12/16/18 12/18/18 History Allergies Allergy/AdvReac Type Severity Reaction Status Date / Time No Known Allergies Allergy Verified 12/18/18 12:35 Physical Exam Vitals: Vital Signs Pulse Resp BP 12/18/18 10:20 58 L 16 154/84 Intake and Output 12/17/18 12/18/18 12/18/18 22:59 06:59 14:59 Other: Weight 114.7 kg PHYSICAL EXAMINATION: Patient is lying in the bed comfortably, no acute distress, awake alert and oriented.. HEENT: Normocephalic. Neck is supple. Pupils reactive. Nostrils clear. Oral cavity is moist. Ears reveal no drainage. Neck reveals no JVD, carotid bruits, or thyromegaly. CHEST EXAMINATION: Trachea is central. Symmetrical expansion. Lung loo clear to auscultation and percussion. CARDIAC: Normal S1, S2 with no gallops. No murmurs ABDOMEN: Soft. Bowel sounds normal. No organomegaly. No abdominal bruits. Extremities: reveal no edema. No clubbing or cyanosis Neurologically awake, alert, oriented x3 with well-coordinated movements. No focal deficits noted Skin: No rash or skin lesions. Psychiatric: Coperative. Nonsuicidal Musculoskeletal: No joint swelling or deformity. Normal range of motion. Cranial Nerve Examination - Cranial Nerves Cranial Nerve I- Olfactory: Intact Cranial Nerve II- Optic: Intact Cranial Nerve III- Oculomotor: Intact Cranial Nerve IV- Trochlear: Intact Cranial Nerve V- Trigeminal: Intact Cranial Nerve - Abducens: Intact Cranial Nerve VII- Facial: Intact Cranial Nerve VIII- Auditory: Intact Cranial Nerve IX- Glossopharyngeal: Intact Cranial Nerve X- Vagus: Intact Cranial Nerve XI- Accessory: Intact Cranial Nerve XII- Hypoglossal: Intact Assessment and Plan Assessment: Acute suicidal ideation. Chest pain/pressure after emotional argument. Ruled out ACS. Negative dobutamine stress test. Acute kidney injury most likely prerenal. resolved now. Hyperlipidemia Coronary artery disease history of stent placement in the past Anxiety/depression DVT prophylaxis. Patient is ambulatory currently. Plan: Patient will be continued on aspirin Plavix and metoprolol. Continued psychiatric management currently. We will continue to follow and further recommendations based on the clinical course. Thank you for your consult. Time with Patient: Greater than 30
[2018-12-18] MEDS: METOPROLOL TARTRATE 25 MG TAB PO SCH (20:22)
[2018-12-18] MEDS: ATORVASTATIN 10 MG TAB PO SCH (20:22)
[2018-12-18] MEDS: traZODone HCL 50 MG TAB PO PRN (23:07)
[2018-12-19] MEDS: ASPIRIN 81 MG PO SCH (08:18)
[2018-12-19] MEDS: METOPROLOL TARTRATE 25 MG TAB PO SCH ×2 (08:18→21:00)
[2018-12-19] MEDS: SERTRALINE 100 MG TAB PO SCH (08:19)
[2018-12-19] MEDS: CLOPIDOGREL 75 MG TAB PO SCH (08:19)
--- NOTE | 2018-12-19 10:38 | P.PN ---
Progress Note - Text Progress Note Date: 12/19/18 Interval History: Patient was seen in taking part in group and was agreeable to be interviewed in the office by feature writer. Patient was calm and cooperative during interview and answered all questions appropriately. Patient spoke of his mood gradually improving however continued to feel anxious at some times when he is thinking about his and caring for her. Patient also spoke of trying to get an appointment with a couples therapist so he can work on marital issues with his . He also spoke of concern of the current charges pending against him related to the domestic violence claim. He spoke of wanting to get a new job locally however needs access to his emails and his phone to acquire this job. He spoke of having interrupted sleep last night due to yelling in the hallways and being in an uncomfortable bed. He claims that he is eating well and has been taking his medications and denies any side effects. At this time patient denies any suicidal or homical ideations, intent or plan. Patient denies any auditory, visual hallucinations and denies any paranoia or delusions. Mental Status Exam: General Appearance: [Patient appears to be stated age is alert, pleasant, and cooperative.] Patient is wearing a hospital gown and is in no acute distress Behavior: [Patient is calmly seated without any agitated behavior.] Speech: Patient's speech is fluent and nonpressured. Mood/Affect: Patient reports their mood is improving, affect is congruent and shallow Suicidality/Homicidality: Patient denies having any suicidal or homicidal ideation intent or plan. Perceptions: Patient denies any auditory or visual hallucinations. Though content/process: There is no evidence of any delusional thought content and thought process is linear and goal-directed. Memory and concentration: AOX3, grossly intact for the purposes of this session Judgment and insight: Improving Assessment Major depressive disorder, moderate-severe Plan: -Patient continues to meet criteria for inpatient psychiatric admission for symptom stabilization and safety. -Medications - will continue patient on sertraline 100 mg daily for mood and trazodone 50 mg daily at bedtime when necessary for mood/insomnia. -When necessary Ativan for agitation/aggression -SW on board for discharge planning. Patient is interested in couples therapy upon discharge with his to work on marital issues. Will inquire today about domestic violence charges pending with local police.
[2018-12-19] MEDS: ACETAMINOPHEN TAB 325 MG TAB PO PRN (10:57)
[2018-12-19] MEDS: traZODone HCL 50 MG TAB PO PRN (21:00)
[2018-12-19] MEDS: ATORVASTATIN 10 MG TAB PO SCH (21:00)
[2018-12-20 07:21] VITALS: TEMP 97.8
[2018-12-20] MEDS: METOPROLOL TARTRATE 25 MG TAB PO SCH (09:18)
[2018-12-20] MEDS: CLOPIDOGREL 75 MG TAB PO SCH (09:18)
[2018-12-20] MEDS: ASPIRIN 81 MG PO SCH (09:18)
[2018-12-20] MEDS: SERTRALINE 100 MG TAB PO SCH (09:18)
[2018-12-20] MEDS: ACETAMINOPHEN TAB 325 MG TAB PO PRN (09:18)
[2018-12-20 09:22] VITALS: BP 133/89; PULSE 78; RESP 18
--- NOTE | 2018-12-20 12:10 | P.DS ---
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 Patient initially came in with complaints of depression and suicidal ideations with plan to jump off a bridge or run into traffic or overdose on his blood pressure medications. Patient states that he had multiple chronic stressors in his life including financial stressors, marital stressors, employment and housing problems. He stated that he felt suicidal and overwhelmed with stress when police arrived to his house after his called the irrigation technician on him, however he claims it was a misunderstanding as she speaks poor Swedish and mainly speaks Sinhala. Patient was then brought to the hospital and denied any auditory or visual hallucinations denied using any recreational drugs UDS was negative. BAL was negative. Patient admitted to being on Zoloft and trazodone for his mood. Hospital course: Upon admission to the unit patient was irritable, distressed however was directable and and polite with staff. Patient continued to endorse depression however claimed that his suicidal ideations remitted. Patient got along well with other patients on the unit and followed unit protocol. Patient was compliant with his medications and denied any side effects throughout his hospital course. Patient was restarted on Zoloft 100 mg daily for mood and trazodone 50 mg daily at bedtime when necessary for mood and sleep. Patient spoke of his stressors and engaged in therapy both group and individual. Throughout the course of the hospitalization patient gradually improved with regards to his mood and became future oriented and had multiple plans of pursuing different jobs and received good news that his apartment is now livable and has electricity and it. He also states that he is now willing to work on his marriage with his and go into couples counseling. On the day of discharge patient denied any suicidal or homicidal ideations intent or plan denied any auditory or visual hallucinations. He denied any paranoia and did not endorse any delusions. Patient does not have a significant history of substance abuse however was counseled on abstaining from all substances including alcohol and marijuana. Patient was also counseled on his medications and need for compliance. Patient was encouraged to follow-up with his outpatient appointment for mental health and also for primary care. Patient to be given legal mediator in follow and also [facility] information prior to discharge. Mental status: General Appearance: Patient appears to be stated age is alert, pleasant, and cooperative. Behavior: Patient is calmly seated without any agitated behavior. Speech: Patient's speech is fluent and nonpressured. Mood/Affect: Patient reports their mood is improved, affect is congruent and euthymic. Suicidality/Homicidality: Patient denies having any suicidal or homicidal ideation intent or plan. Perceptions: Patient denies any auditory or visual hallucinations. Though content/process: There is no evidence of any delusional thought content and thought process is linear and goal-directed. Memory and concentration: grossly intact for the purposes of this session. Judgment and insight: fair Impression: Major depressive disorder, moderate-severe Plan: -Continue with discharge today as patient has improved and stabilized psychiatrically. -Continue Zoloft 100 mg daily for mood and trazodone 50 mg daily at bedtime when necessary for mood and insomnia. -Patient was counseled on the need for medication compliance and appropriate follow-up at mental health and also primary care for medical issues. Patient verbalized understanding and agreed. -Patient encouraged to continue with couples counseling to work on marital issues. -Social work to give patient in follow for [facility] and legal mediator in the area. -Patient counseled on abstaining from recreational drugs and marijuana and alcohol. -Patient was instructed to return to the hospital or seek immediate medical care if his psychiatric or medical systems do worsen or reoccur. Allergies Allergy/AdvReac Type Severity Reaction Status Date / Time No Known Allergies Allergy Verified 12/18/18 12:35 Vital Signs Temp 97.8 F 12/20/18 06:50 Pulse 78 12/20/18 09:21 Resp 18 12/20/18 09:21 BP 133/89 12/20/18 09:21 Pulse Ox Patient Condition at Discharge: Stable Plan - Discharge Summary Discharge Rx Participant: No New Discharge Prescriptions: New traZODone HCL [Desyrel] 50 mg PO HS PRN #30 tab PRN Reason: Insomnia Continue Nitroglycerin Sl Tabs [Nitrostat] 0.4 mg SUBLINGUAL Q5M PRN #20 tab PRN Reason: Chest Pain Aspirin 81 mg PO DAILY #30 chew Metoprolol Tartrate [Lopressor] 25 mg PO BID #60 tab Clopidogrel [Plavix] 75 mg PO DAILY #30 tab Atorvastatin Calcium [Lipitor] 10 mg PO HS Sertraline [Zoloft] 100 mg PO DAILY #30 tab Discontinued traZODone HCL 50 mg PO HS PRN PRN Reason: Insomnia Discharge Medication List Aspirin 81 mg PO DAILY #30 chew 10/16/18 [Rx] Clopidogrel [Plavix] 75 mg PO DAILY #30 tab 10/16/18 [Rx] Metoprolol Tartrate [Lopressor] 25 mg PO BID #60 tab 10/16/18 [Rx] Nitroglycerin Sl Tabs [Nitrostat] 0.4 mg SUBLINGUAL Q5M PRN #20 tab 10/16/18 [Rx] Atorvastatin Calcium [Lipitor] 10 mg PO HS 12/16/18 [History] Sertraline [Zoloft] 100 mg PO DAILY #30 tab 12/20/18 [Rx] traZODone HCL [Desyrel] 50 mg PO HS PRN #30 tab 12/20/18 [Rx] Activity/Diet/Wound Care/Special Instructions: Activity and diet as tolerated. No guns or weapons in the home. Refrain from drugs or alcohol not prescribed by your physician. Take all your medications as prescribed, and attend all follow up appointments as scheduled. If in need of refills for medications, please go to your out patient psychiatric provider, or your primary care physician. If in crisis, call or please go to the nearest ER for evaluation. Discharge Disposition: HOME SELF-CARE
== END 2018-12-20 14:49 | disposition home or self-care (01) | DRG 885 ==
LOC: 3MHU 11:51
PROVIDERS: ADMIT Psychiatry & Neurology Psychiatry; ATTEND Psychiatry & Neurology Psychiatry
DX: F33.1 Major depressive disorder, recurrent, moderate (principal); R45.851 Suicidal ideations; F41.9 Anxiety disorder, unspecified; G47.00 Insomnia, unspecified; I10 Essential (primary) hypertension; I25.10 Atherosclerotic heart disease of native coronary artery without angina pectoris; Z59.0 Homelessness; Z79.899 Other long term (current) drug therapy; Z81.1 Family history of alcohol abuse and dependence; Z86.73 Personal history of transient ischemic attack (TIA), and cerebral infarction without residual deficits